=== PATIENT | female | born 1990 | race Asian ===

== ENCOUNTER 2019-04-02 22:17 | Emergency (ER) | payer OTHER ==
[~2019-04-02] VITALS: Ht 160 cm; Wt 54.4 kg
[2019-04-02] MEDS ORDERED: PROCHLORPERAZINE EDISYLATE 10 MG/2 ML VIAL ONE (22:36)
[2019-04-02] MEDS ORDERED: diphenhydrAMINE 50 MG/1 ML VIAL ONE (22:36)
[2019-04-02] MEDS ORDERED: diphenhydrAMINE 50 MG/1 ML VIAL IV ONE (22:45)
[2019-04-02] MEDS ORDERED: PROCHLORPERAZINE EDISYLATE 10 MG/2 ML VIAL IV ONE (22:45)
[2019-04-02] MEDS ORDERED: HYDROMORPHONE 1 MG/1 ML DISP.SYRIN IV ONE (23:00)
[2019-04-02] MEDS ORDERED: HYDROMORPHONE 1 MG/1 ML DISP.SYRIN ONE (23:03)
--- NOTE | 2019-04-02 23:30 | NUR ---
IV removed. Catheter intact and site benign. Pressure and 4x4 gauze applied to site. No bleeding noted.
--- NOTE | 2019-04-02 23:30 | NUR ---
Patient discharged to home in stable conditon. Written and verbal after care instructions given. Patient verbalizes understanding of instructions. Pt states she feels better. States no more migraine. Pt left ER in stable gait with boyfriend who will drive pt home. Vital signs stable. No acute distress noted.
[2019-04-02 23:31] VITALS: BP 110/71
== END 2019-04-02 23:31 | disposition home or self-care (01) ==
LOC: ER 22:24
DX: R51 Headache (principal); R11.0 Nausea
CPT/HCPCS: 96374; 96375; 99283; J0780; J1170; J1200; A4663

== ENCOUNTER 2022-04-13 08:38 | Emergency (ER) | payer OTHER ==
[~2022-04-13] VITALS: Ht 162.6 cm; Wt 52.2 kg
[2022-04-13 11:44] LABS: *URINE HCG, QUAL NEGATIVE (NEGATIVE)
[2022-04-13] MEDS ORDERED: ONDA4TAB5 PO (12:12)
[2022-04-13] MEDS ORDERED: ONDANSETRON ODT 4 MG TAB.RAPDIS SL ONE (12:15)
[2022-04-13 13:16] VITALS: BP 124/72
== END 2022-04-13 13:18 | disposition home or self-care (01) ==
LOC: ER 08:41
DX: F10.10 Alcohol abuse, uncomplicated (principal); Z80.3 Family history of malignant neoplasm of breast
CPT/HCPCS: 84703; A4663